=== PATIENT | male | born 1955 | race Caucasian/White ===

== ENCOUNTER → 2025-04-10 | Outpatient (CLI) | payer OTHER, SELFPAY ==
--- NOTE | 2025-04-10 15:39 | XR_ITS ---
Examination: Knee, right , 3 views Technique: Knee AP, lateral, oblique 3 views Date and time of exam: April 10, 2025 1556 hours INDICATIONS: Postop knee replacement one year ago. FINDINGS: Mild osteopenia. Total right knee arthroplasty. Satisfactory alignment. No fracture. No loosening of the prosthetic components. IMPRESSION: Total right knee arthroplasty with satisfactory alignment.
--- NOTE | 2025-04-10 15:39 | XR_ITS ---
Examination: Left elbow 2 views TECHNIQUE: AP lateral left elbow 2 views Date and time: April 10, 2025, 1556 hours Comparison July 03, 2020. INDICATIONS: Elbow pain 1.5 years. FINDINGS: Moderate diffuse elbow osteoarthritis No fracture or dislocation No elbow effusion IMPRESSION: Moderate osteoarthritis
== END | disposition home or self-care (01) ==
LOC: CDIM 15:28
PROVIDERS: PCP Family Medicine; Referring Provider Nurse Practitioner Family; Visit Provider Nurse Practitioner Family
DX: M25.561 Pain in right knee (principal); Z96.651 Presence of right artificial knee joint; M19.022 Primary osteoarthritis, left elbow
CPT/HCPCS: 73070; 73562

== ENCOUNTER → 2025-04-17 | Outpatient (CLI) | payer OTHER, SELFPAY ==
--- NOTE | 2025-04-17 08:15 | XR_ITS ---
Examination: Ultrasound soft tissue neck TECHNIQUE: Grayscale sonographic images soft tissue neck Date and time: April 17, 2025 0842 hours INDICATIONS: Palpable lump in the neck note is beginning several months ago. FINDINGS: Multiple midline small lymph nodes, the largest 6 x 4 mm IMPRESSION: Nonpathologic lymphadenopathy
== END | disposition home or self-care (01) ==
LOC: CDIM 08:05
PROVIDERS: Referring Provider Nurse Practitioner Family; Visit Provider Nurse Practitioner Family
DX: R59.0 Localized enlarged lymph nodes (principal)
CPT/HCPCS: 76536

== ENCOUNTER → 2025-06-26 | Outpatient (CLI) | payer OTHER, SELFPAY ==
--- NOTE | 2025-06-26 13:00 | XR_ITS ---
Exam: MRI knee without contrast, right Date and time of exam: June 26, 2025 1330 hours INDICATIONS: Diagnosis acute postprocedural pain, medial right-sided knee pain numbness discomfort instability joint clicking and locking post knee replacement surgery 2 years ago Technique: Multiple axial, coronal, and sagittal sections on the knee have been obtained. T2-Weighted sagittal, fat-suppressed images, TR 3,500, TE 62, T2 weighted coronal fat-saturated images, TR 3,500, TE 62 Proton density sagittal sections, TR 1800, TE 31. T-1 weighted coronal images, TR 524, TE 13.0 Findings: All the images are severely degraded by magnetic susceptibility artifact from the patient's knee arthroplasty IMPRESSION: Recommend CT scan of the right knee arthroplasty for best diagnostic assessment
== END | disposition home or self-care (01) ==
PROVIDERS: PCP Nurse Practitioner Family; Referring Provider Nurse Practitioner Family; Visit Provider Nurse Practitioner Family
DX: M25.561 Pain in right knee (principal); Z96.651 Presence of right artificial knee joint; G89.18 Other acute postprocedural pain
CPT/HCPCS: 73721

== ENCOUNTER → 2025-08-29 | Outpatient (CLI) | payer OTHER, SELFPAY ==
--- NOTE | 2025-08-29 13:30 | XR_ITS ---
Examination: CT right knee without intravenous contrast, 2-D sagittal reconstructions. 2-D coronal reconstructions. 3-D reconstructions. Date and time of exam: August 29, 2025, 1333 hours INDICATIONS: Status post right knee replacement, history right knee pain beginning 6 months ago CTDI: vol (mGy): 7.99 DLP: (mGycm): 226 Technique: Multiple 1.25 mm axial sections of the right knee have been obtained. 2-D sagittal and coronal reconstructions have been obtained. 3-D reconstructions have been obtained. Low dose protocols were performed. One or more of the following dose reduction techniques were used; automated exposure control, adjustment of the mA and/or KV according to patient size, use of iterative reconstruction technique. Findings: Total right knee replacement Satisfactory alignment No fractures No loosening of the prosthetic components Small knee effusion No ossified joint bodies IMPRESSION: Total right knee replacement with satisfactory alignment No fractures No findings of loosening of the prosthetic components
== END | disposition home or self-care (01) ==
PROVIDERS: PCP Nurse Practitioner Family; Referring Provider Nurse Practitioner Family; Visit Provider Nurse Practitioner Family
DX: T84.84XA Pain due to internal orthopedic prosthetic devices, implants and grafts, initial encounter (principal); Z96.651 Presence of right artificial knee joint
CPT/HCPCS: 73700